=== PATIENT | female | born 1960 | race Caucasian/White ===

== ENCOUNTER 2019-11-25 07:01 | Outpatient (CLI) | payer OTHER | END 2019-11-25 07:02 | disposition short-term general hospital (02) | LOC: EMS 07:01 | PROVIDERS: ATTEND Surgery | DX: R42 Dizziness and giddiness (principal); R11.0 Nausea | CPT/HCPCS: A0425; A0429 ==

== ENCOUNTER 2020-11-30 19:51 | Outpatient (CLI) | payer OTHER | END 2020-11-30 19:52 | disposition home or self-care (01) | LOC: COV 19:51 | PROVIDERS: ATTEND Family Medicine | DX: Z20.822 Contact with and (suspected) exposure to COVID-19 (principal) ==